=== PATIENT | female | born 1950 | race Caucasian/White ===

== ENCOUNTER → 2017-12-29 | Outpatient (CLI) | payer MEDICARE, BC ==
[~2017-12-29] MED LIST: GABAPENTIN300 MG PO; LORAZEPAM0.5 MG PO; METHYLPHENIDATE5 MG PO; ULTRAM50 MG PO
--- NOTE | 2017-12-29 18:58 | Diagnostic Imaging Report ---
Parathyroid Scan with SPECT Reason for exam: Hyperparathyroidism; elevated calcium levels x 9+ months Radiopharmaceutical: Tc-99m sestamibi 27 mCi After intravenous administration of the radiopharmaceutical, immediate and 2-hour planar images of the neck and upper chest were obtained. Tomographic images of the neck and upper chest were also obtained following the initial planar images. The lower pole of the left thyroid lobe has a full contour suggestive of a nodule. Otherwise, distribution of tracer activity appears physiologic throughout the neck and upper chest on the initial planar images. On the tomographic images, a focal area of increased tracer extends posterior to the lower pole of the left thyroid lobe. On the delayed planar images, washout of tracer from the thyroid is complete with no focal areas of persistent tracer activity. Impression: Suspect a single enlarged hypermetabolic parathyroid adenoma immediately posterior to the lower pole of the left thyroid lobe. A thyroid adenoma can also give this appearance. A radioiodine thyroid scan for comparison would identify whether a thyroid adenoma is present. Signed by: Dr. Michelle Grant M.D. on 12/29/2017 6:55 PM
== END ==
LOC: NM 08:40
PROVIDERS: ATTEND Internal Medicine
DX: E21.3 Hyperparathyroidism, unspecified (principal)
CPT/HCPCS: 78071; A9500